=== PATIENT | male | born 1990 | race Caucasian/White ===

== ENCOUNTER 2023-12-13 09:00 | Outpatient (CLI) | payer OTHER, SELFPAY | END 2023-12-13 09:01 | disposition home or self-care (01) | PROVIDERS: PCP Family Medicine; Visit Provider Family Medicine | DX: Z00.00 Encounter for general adult medical examination without abnormal findings (principal); R79.89 Other specified abnormal findings of blood chemistry; J45.20 Mild intermittent asthma, uncomplicated | CPT/HCPCS: 80048; 80061 ==

== ENCOUNTER 2024-06-04 07:48 | Day surgery (SDC) | payer OTHER, SELFPAY ==
[2024-06-04] VITALS (13 sets, daily range): BP systolic 122–155; BP diastolic 59–100; PULSE 57–80; RESP 12–16; TEMP 36.4–36.6; O2SAT 96–100; BMI 33.3
--- OUTSIDE RECORDS SUMMARY | 2024-06-04 07:51 | XMS_ITS | Clinical Summary ---
Author Organization [employer] [facility] Address [facility] [place] [address] Care Team Providers Care Paramedic Supervisor Name Role Phone Clinic, No Pcp Or Primary Care Provider Unavaila ble Allergies No known active allergies Medications predniSONE (DELTASONE) 20 mg tabletIndication s:Community acquired pneumonia of left lung, unspecified part of lung Take 1 tablet by mouth once daily with a meal. 4 tablet 12/14/2019 Active Social History Tobacco Use Types Packs/Day Years Used Date Smoking Tobacco: Never Assessed Sex and Gender Information Value Date Recorded Sex Assigned at Not on file Legal Sex Male 11:26 PM CDT Gender Identity Not on file Sexual Orientation Not on file Last Filed Vital Signs Vital Sign Reading Time Taken Comments Blood Pressure 151/82 12/14/2019 1:15 AM CDT Pulse 91 12/14/2019 1:15 AM CDT Temperature 39.4 C (102.9 F) 12/14/2019 1:15 AM CDT Respiratory Rate 22 12/13/2019 11:48 PM CDT Oxygen Saturation 97% 12/14/2019 1:15 AM CDT Inhaled Oxygen Concentration - - Weight 108.9 kg (240 lb) 12/13/2019 11:48 PM CDT Height 180.3 cm (5' 11) 12/13/2019 11:48 PM CDT Body Mass Index 33.47 12/13/2019 11:48 PM CDT Plan of Treatment Health Maintenance Due Date Last Done Comments Tdap 2001 Depression screening for age 12+ 2002 HIV for age 15-65 2005 BMI (ht and wt on same day) for age 18+ 2008 Hepatitis C screening for ag e 18-79 2008 Tetanus booster 2010 COVID-19 vaccine series ( season) 2023 Influenza for age 9-49 12/15/2023 Pneumococcal series for age 6-49 Aged Out No longer eligible based on patient's age to complete this topic Insurance MEDICA CHOICE Care Teams Paramedic Supervisor Relationship Specialty Start Date End Date Clinic, No Pcp Or . PCP - General 12/14/19
--- OUTSIDE RECORDS SUMMARY | 2024-06-04 07:51 | XMS_ITS | Clinical Summary ---
Author Organization [facility] Address [address] [place] [id number] Care Team Providers Care Garnisher Name Role Phone No Ref-Primary, Physician Primary Care Provider Allergies No known active allergies Social History Tobacco Use Types Packs/Day Years Used Date Smoking Tobacco: Never Assessed Adolescent Education Answer Date Record ed Getting School Help Needed Not on file 01/05 Sex and Gender Information Value Date Recorded Sex Assigned at Not on file Legal Sex Male 2:22 AM CDT Gender Identity Not on file Sexual Orientation Not on file Last Filed Vital Signs Vital Sign Reading Time Taken Comments Blood Pressure 123/81 09/04/2021 2:30 AM CDT Pulse 81 09/04/2021 2:30 AM CDT Temperature 36.7 C (98 F) 09/04/2021 2:30 AM CDT Respiratory Rate 18 09/04/2021 2:30 AM CDT Oxygen Saturation 99% 09/04/2021 2:30 AM CDT Inhaled Oxygen Concentration - - Weight 99.8 kg (220 lb) 09/04/2021 2:30 AM CDT Height - - Body Mass Index - - Plan of Treatment Health Maintenance Due Date Last Done Comments ADVANCE CARE PLANNING 1990 ANNUAL REVIEW OF HM ORDERS 1990 HIV SCREENING 2005 HEPATITIS C SCREENING 2008 HEPATITIS B IMMUNIZATION (1 of 3 - 19+ 3-dose series) 2009 DTAP/TDAP/TD IMMUNIZATION (1 - Tdap) 06/18/2015 YEARLY PREVENTIVE VISIT 06/03/2016 06/03/2015 COVID-19 Vaccine ( - 2023-2 5 season) 2023 INFLUENZA VACCINE (#1) 2023 PHQ-2 (once per calendar year) 2024 ZOSTER IMMUNIZATION (1 of 2) 2040 HPV IMMUNIZATION Aged Out No longer e ligible based on patient's age to complete this topic MENINGITIS IMMUNIZATION Aged Out No l onger eligible based on patient's age to complete this topic Pneumococcal Vaccine: Pediat rics (0 to 5 Years) and At-Risk Patients (6 to 49 Years) Aged Out No longer eligi ble based on patient's age to complete this topic Insurance MEDICA CHOICE Care Teams Garnisher Relationship Specialty Start Date End Date No Ref-Primary, Physician PCP - General 09/04/21
--- OUTSIDE RECORDS SUMMARY | 2024-06-04 07:52 | XMS_ITS | Data Portability ---
Author Organization [place] [facility] Address [address] [place] [address] Assessment Encounter Date Assessment Date Assessment LastModified by Organization Details LastModified Time 11/29/2021 11/29/2021 After a thorough discussion of the preparation, procedure details, risks, possible complications, post-operative care and instructions the patient wishes to proceed with vasectomy. He was given an opportunity to ask questions related to the above information. [email or web address] Not available 11/29/2021 11:25:38 02/28/2022 02/28/2022 31 year old male here for vasectomy for elective male sterilization. Not available 02/27/2022 18:38:27 Plan of Treatment Reminders Order Date Submit Date Provider Last Modified By Organization Details Last Modified Time Details Appointments None recorded. Lab semen analysis (post vasectomy) 2022 023 [facility], [address], [place], [address], 3 12:22:03 semen analysis (post vasectomy) 2021 022 [email or web address] Not available 11:40:07 Referral pelvic floor therapy referral - Please contact patient to schedule 2023 024 [facility], [address] [place], [address], 4 15:07:19 Procedures None recorded. Surgeries None recorded. Imaging None recorded. Medication Orders cephalexin 500 mg capsule [id number] [address], [place], [address], 4 14:25:22 [facility]ium 10 mg tablet [id number], [address], [place], [address], 4 14:25:18 Patient TargetsNo targets recorded. Patient Instructions Encounter Date Encounter Id Patient Instructions Last Modified By Organization Details Last Modified Time 11/29/2021 [id number] SURGICAL ELECTIV E STERILIZATION: VASECTOMY WHAT IS A VASECTOMY? A vasectomy makes a man sterile by obstructing the flow of sperm through the vas deferens. A small puncture in the scrotum is used to isolate a section of the vas deferens. A small portion of the vas deferens is then removed and the vas is occluded. The procedure is typically performed in the office using a local anesthesia, but can be performed at a surgery center under sedation. (Please check with your insurance carrier if you would like sedation, to make sure you qualify.) After a vasectomy it takes at least 3 months to completely clear your ejaculation of sperm. We provide you with a container for a semen analysis to prove that your vasectomy has been successful We believe that proving your sterility is your responsibility. We try to make it easy for you, but you are responsible for collecting and bringing your sample to our office. You must continue to use other forms of contraception until you prove that your vasectomy has been successful. SCHEDULING A VASECTOMY Scheduling a vasectomy is easy. It will consist of a brief office visit with a surgeon to discuss the risks of the procedure and so the surgeon can make sure that you are a good candidate for a vasectomy. Once you are medically cleared and questions are answered, another appointment is made for the actual procedure. POSSIBLE RISKS FROM HAVING A VASECTOMY 1. Recanalization: This word means spontaneous reconnection of the vas deferens and failure of the vasectomy. This complication is rare. Although it can occur at any time, even years later, it most often occurs during the first 6-8 weeks after the procedure. We can t say this enough: Patients must prove that they are sterile by providing semen samples void of sperm before discontinuing other forms of control. 2. : Believe it or not, there are patients who prove they have no sperm in their semen but still father a child. The rate of after a successful vasectomy reported in literature is 0.05% or less. 3. Infection: Uncommon, and usually mild. Most often it can be treated with antibiotics. 4. Bleeding: Usually mild, although a large blood clot called a hematoma can develop and typically resolve by itself. 5. Pain: Pain usually lasts several days and goes away. Pain that lasts months to years is rare. 6. Sperm Granuloma: This is a small scar that sometimes forms where the vas is cut and is not harmful. 7. Sperm Antibodies: These antibodies help the body get rid of the sperm. They are not harmful to you but may make it difficult to achieve if you have the vasectomy reversed. PREPARING FOR A VASECTOMY How to choose a good appointment time: Carve a few days out of your busy schedule when you can recover. Too many men try to go back to normal activities too soon. Men with desk-jobs can usually go back to work after a weekend; men who do heavy labor may want to have a full week set aside to recover. Most men won t need that sort of time, but for those who do it is nice to have. Seven days before the procedure: Stop taking aspirin, ibuprofen (Advil, Motrin), vitamin E, herbal supplements, or any medication that you take to thin the blood. If you are on Warfarin, Coumadin or Plavix, call you physician regarding these medications. Make sure you have some tight underwear or a jock strap to bring to the vasectomy appointment. Wearing supportive underwear for a few days rather than boxers helps to prevent swelling. Buy some triple antibiotic ointment (Bacitracin, Neosporin, generic) to put on the puncture sites. You won t need a big tube because the incisions are small and you only need to put it on for a few days. The day of the procedure: Eat normally unless you are being anesthetized. Please shower or wash the scrotum before the procedure to help reduce the risk of infection. Remember to bring the supportive underwear or jock strap so you can wear it home. Having someone drive you is only mandatory if you are being sedated. AFTER YOUR VASECTOMY Go home. Relax. Show this sentence to your : Plan on being lazy for at least [address] an ice pack on the scrotum (one hour on/one hour off-do not put ice directly on the skin) to minimize swelling. You may shower after 24 hours. Be careful in the shower if you are taking any new prescription medication for the vasectomy, such as narcotic pain medication. Do not lift anything over 20 pounds for seven days. After that, use your judgment. A good rule of thumb: if you are wondering if you should, you probably shouldn t. Resume normal activity slowly. Wait at least seven days before resuming sexual activity, preferably two weeks. It is normal to have discomfort with sex initially. Don t worry, that gets better quickly. It takes some men a few weeks to start feeling totally normal, so be patient. Don t worry about calling with questions if you don t think you are healing well enough; most of the time you just need a little reassurance. Issues that require a phone call are: fever above 100.5; bleeding that doesn t stop for a couple hours after the procedure; progressive scrotal swelling; incision drainage; pain that cannot be controlled with pain medication. A FINAL REMINDER You are not sterile until your semen is completely free of sperm. You must take the responsibility to bring sample into our office to prove your vasectomy is a success. If you follow the instructions above it should be. [email or web address] Not available 11/29/2021 13:52:53 02/28/2022 [id number] He tolerated the procedure well. We discussed post-procedural care including scrotal support for 2 weeks, use of ice packs as needed 30 minutes on/30 minutes off, and application of triple antibiotic ointment twice daily until the incisions have healed. We discussed light restrictions for the next 2 weeks including no heavy lifting and abstinence from intercourse until he notes resolution of swelling and any discomfort. He understands that he needs to use secondary contraception until he confirmed to be sterile. We reviewed return precautions including worsening scrotal swelling and ecchymosis suggestive of a scrotal hematoma, local erythema or drainage suggestive of infection, persistent pain, or fevers. He will return in 3 months for semen analysis. He will call to arrange a visit sooner if he has any concerns during his recovery. [email or web address] Not available 02/27/2022 18:38:30 06/05/2023 [id number] I suspect this i s largely musculoskeletal. We discussed a round of pelvic floor physical therapy. He is agreeable. He will return if he does not find improvement. Not available 06/05/2023 14:43:56 Reason for Referral Pelvic Floor Therapy Referra l for Pain in testicle Please contact patient to schedule Referring Physician: Mc Lawrence, Urology, Encounter Date: 06/05/2023 Results Created Date Observation Date Name Description Value Unit Range Abnormal Flag Note LastModifiedBy Organization Detail LastModifiedTime 06/04/19 23 06/04/2022 POST VAS vasectomy procedure date 2021 Not Available [facility] [address], [place], [address], 06/04/2022 12:22:03 06/04/19 23 06/04/2022 POST VAS post vas # 1 Not Available [facility] [address], [place], [address], 06/04/2022 12:22:03 06/04/19 23 06/04/2022 POST VAS post vas sperm NEGATI VE negati ve Not Available [facility] [address], [place], [address], 06/04/2022 12:22:03 06/04/19 23 06/04/2022 POST VAS pv WBC 0-2/HP F [hpf] Not Available [facility] [address], [place], [address], 06/04/2022 12:22:03 06/04/19 23 06/04/2022 POST VAS notification RESULT S TO PROVID ER FOR REVIEW This lab resul t is being provi ded to you and your provi valerio at the same time in compl iance with the Centu ry Cures Act. Your provi valerio may not have had time to revie w and make recom menda tions based on the resul t. Celeste caballero allow up to one week for provi valerio revie w. Not Available [facility] [address], [place], [address], 06/04/2022 12:22:03 Result Notes None recorded. Problems Name Problem SNOMED Code Status Onset Date Resolution Date Notes Provider Name and Address Organization Details Recorded Time Gastroesophage al reflux disease 225728232 Active Felicia Angelpaste r null, [facility] 2 11:07:07 Asthma 063491454 Active Felicia Goodpaste r null, [facility] 2 11:07:18 Problem Notes None recorded. Procedures Surgical History Date Name Laterality Status Provider Name and Address Organization Details Recorded Time 3 Post Vas completed Jyoti Cano [facility] 06/04/2022 09:05:31 2 SH Vasectomy completed Mc Lawrence MD [address], [place], [address], [facility] 02/27/2022 18:38:13 Removal of sperm duct(s) completed Not Available Health Note 06/03/2023 14:56:24 Imaging Results None recorded. Procedure Notes None recorded. Medical Equipment None Reported. Allergies No known drug allergies Medications Name Sig Start Date Stop Date Status Note LastModified by Organization Details LastModified Time famotidin e 20 mg tablet TAKE 1 TABLET BY MOUTH TWICE A DAY NEEDED 06/05 completed HN: Patient reports no longer taking Not Available Not Available Not Available cephalexi n 500 mg capsule TAKE 1 CAPSULE BY MOUTH 30 MIN PRIOR TO PROCEDUR E, ANTIBIOT IC 06/05 completed Not Available Not Available Not Available omeprazol e 20 mg capsule,d elayed release TAKE 1 CAPSULE BY MOUTH EVERY DAY 30 MINUTES TO 1 HOUR BEFORE A MEAL active Not Available Not Available No t Available diazepam 10 mg tablet TAKE 30 MIN PRIOR TO THE PROCEDUR E, ANXIETY 06/05 completed HN: Patient reports no longer taking Not Available Not Available Not Available levofloxa jayne 500 mg tablet TAKE 1 TABLET BY MOUTH DAILY FOR 10 DAYS 11/29 completed Not Available Not Available Not Available albuterol sulfate HFA 90 mcg/actua tion aerosol inhaler INHALE 2 PUFFS INTO THE LUNGS EVERY 4 TO 6 HOURS NEEDED active Not Available Not Available No t Available fluticaso ne propionat e 50 mcg/actua tion nasal spray,svitlana pension SPRAY 2 SPRAYS INTO EACH NOSTRIL EVERY DAY active Not Available Not Available No t Available amoxicill in 875 mg-potass ium clavulana te 125 mg tablet TAKE 1 TABLET BY MOUTH TWICE A DAY 06/05 completed Not Available Not Available Not Available Wixela Inhub 250 mcg-50 mcg/dose powder for inhalatio n INHALE 1 PUFF DIRECTED TWICE A DAY RINSE MOUTH AFTER USE. active Not Available Not Available No t Available Vitals Date Recorded Body height Body mass index (BMI) Body weight Provider Name and Address Organization Details Last Updated DateTime 11/29/2021 180.34 cm 33.9 kg/m2 108845.95 g Felicia Leone [facility] 11/29/2021 11:06:22 Date Recorded Body weight Body mass index (BMI) Body height Provider Name and Address Organization Details Last Updated DateTime 06/05/2023 596330.6472 22858 g 32.1 kg/m2 180.34 cm Not Available Health Note 06/05/2023 14:21:55 Social History Question Answer Notes LastModified by Organizat ion Details LastModified Time Tobacco Smoking Status Never Smoker Not Available Health Note 06/03/2023 14:56:25 What Is Your Level Of Alcohol Consumption? Moderate Information not available 06/05/2023 What Is Your Level Of Caffeine Consumption? Moderate [email or web address] Information not available 06/03/2023 How Much Tobacco Do You Chew? None [email or web address] Information not available 06/03/2023 Do You Or Have You Ever Used E-cigarettes Or Vape? Never Used Electronic Cigarettes [email or web address] Information not available 06/03/2023 Race White Information not available 11/29/2021 Ethnicity Not /Latin o Information not available 11/29/2021 Preferred Language Mosotho Information not available 11/29/2021 Could You Be ? No Information not available 11/29/2021 What Was The Date Of Your Most Recent Tobacco Screening? 06/05/2023 [email or web address] Information not available 06/03/2023 Have You Ever Been Counseled For Unhealthy Alcohol Use? Yes Information not available 06/05/2023 What Is Your Relationship Status? [email or web address] Information not available 06/03/2023 Are You Sexually Active? Yes [email or web address] Information not available 06/03/2023 Do You Or Have You Ever Used Smokeless Tobacco? Never Used Smokeless Tobacco [email or web address] Information not available 06/03/2023 Do You Use Any Illicit Or Recreational Drugs? No [email or web address] Information not available 06/03/2023 Has Tobacco Cessation Counseling Been Provided? No Information not available 06/05/2023 Do You Or Have You Ever Used Any Other Forms Of Tobacco Or Nicotine? No Information not available 06/05/2023 How Many Days In The Past Year Have You Consumed 5 Or More Drinks? 12 [email or web address] Information no t available 06/03/2023 Sex: Unknown Functional Status None recorded. Mental Status None recorded. Family History Relationship Description Onset Age of this Age Resolved Age Notes LastModified by Organization Details LastModified Time Unspecified Relation Family history of breast cancer Not available 11:07:33 Unspecified Relation Family history of malignant neoplasm Not available 11:07:40 Medical History Condition Response Sexually Transmitted Infection N Diabetes N Other N Bleeding Disorder N High Blood Pressure N Kidney Stones N High Cholesterol N GERD/Acid Reflux Y Heart Disease N Cancer N Lung Disease Y Depression N Immunizations Vaccine Type Date Status Note Provider Nam e and Address Organization Details Recorded Time SARS-COV-2 (COVID-19) vaccine, UNSPECIFIED completed Not Available Health Note 06/03/2023 14:56:27 Past Encounters Encounter ID Performer Location Encounter Start Date Encounter Closed Date Diagnosis/Indication Diagnosis SNOMED-CT Code Diagnosis ICD10 Code Diagnosis Note [id number] Zuri Gonzales [facility] [address] [address] 11/29/2021 10:52:35 11/29/2021 15:31:56 Contraception care management 706918818 Z30.09 [id number] MD Laksh[facility] [address] [place] [address],[facility] e [address] [place] [phone] 02/28/2022 13:51:15 02/28/2022 14:47:32 Male sterilization 317836395 Z30.2 [id number] Jyoti Eduardo is [facility] [address] [place] [address],[facility] e [address] [place] [phone] 06/04/2022 09:01:08 06/04/2022 09:06:49 Contraception care management 835832901 Z30.9 [id number] [facility] [address] [place] [phone] 06/05/2023 14:20:08 06/05/2023 15:11:07 Pain in testicle 00047294 N50.819 Screening for alcohol abuse 299005367 Z13.39 Health Concerns Section Related Observation LastModified by Organization Detai ls LastModified Time None Recorded Concern Status LastModified by Organization Details LastModified Time None Recorded Advance Directives Directive None Recorded Payers Encounter Date Sequence Insurance Name Policy Number Policy Hannah Covered Member ID Hannah Member ID Guarantor Name 11/29/2021 1 [facility] [id number] Yee Ranjan Simmonsi [id number] Lauro Vigil 02/28/2022 1 [facility] [id number] Yee C Musa [id number] Lauro Vigil 06/04/2022 1 [facility] [id number] [facility] Musa [id number] Lauro Vigil 06/05/2023 1 [facility] [id number] Yeemiguel Vigil [id number] Lauro Arias Musa Notes Date Note Type Note Provider Name and Address Organization Details Recorded Time 11/29/2021 text/html Lauro Vigil is a 31 yo male here for vasectomy consult. He states he and his have been discussing sterilization for years.: AlexChildren: 2 The patient is here to discuss a vasectomy. He has children, and is certain that he and his mate do not want to conceive any more. He understands that a vasectomy is intended to be permanent. The patient understands that while vasectomy reversal is possible, after a vasectomy reversal is not assured. He also understands that a vasectomy reversal is almost always associated with a large, [id number] cost. He does understand that reestablishment of sperm flow through the vas deferens is extremely rare but possible and may result in an unexpected at any time after his vasectomy. Furthermore, he understands that control must be used after vasectomy is performed until He is cleared for unprotected intercourse. He has read the Vasectomy Patient Info Book provided to him and was given an opportunity to answer questions related to the procedure and post-op care. Zuri powell [facility] 11/29/2021 13:52:56 02/28/2022 text/html 31 year old male here for vasectomy for elective male sterilization. Mc Lawrence MD [address] [place] [address],[address], [place], [address], [facility] 02/28/2022 14:29:59 06/05/2023 text/html This is a 32 yea r old male here for the evaluation and management of post-vasectomy pain in the left testicle. He underwent bilateral vasectomy on 02/28/2022.He has had dull aching pain in the left testicle.Also radiates posteriorly behind the scrotum. Mc Lawrence MD [address] [place] [address],[address], [place], [address], [facility] 06/05/2023 14:44:07
[2024-06-04] MEDS: LACTATED RINGERS 1000 ML 1,000 ML 100 ML IV (08:30)
[2024-06-04] MEDS: SODIUM CHLORIDE 0.9 % (FLUSH) 10 ML SYRINGE IVF (08:31)
--- NOTE | 2024-06-04 09:23 | W.PM.H&PU ---
History & Physical Update History & Physical Update H&P Reviewed and patient assessed: No changes noted
--- NOTE | 2024-06-04 09:23 | PM.GSPRC ---
Operative Note Date of procedure: 06/04/24 Pre-op diagnosis: Bilateral inguinal hernia Post-op diagnosis: Same Type of Procedure: Laparoscopic bilateral inguinal hernia repair with mesh. Indications: The patient is a 33-year-old male who developed a painful left inguinal hernia. On exam he was found to have a right inguinal hernia as well. After discussion of options, he elected to proceed with bilateral hernia repair. Procedure Description: After discussing the risks and benefits of the procedure, the patient signed informed consent.? The operative site was marked and the patient was brought to the operating room and placed on the operating table in supine position.? Care was taken to pad the patient's pressure points.?? The patient was then intubated by anesthesia.?? The operative site was then prepped and draped in the usual sterile fashion.? A time-out was then performed. A curvilinear incision was made below the umbilicus. Dissection was carried down to subcutaneous tissue until the anterior rectus fascia was encountered. This was incised off the midline on the left. The rectus muscle fibers were then retracted exposing the posterior fascia. A port with a dissecting balloon was then introduced into the pre-preperitoneal space. This was inflated under direct vision. The balloon was deflated, removed, and a 10 mm working port was placed. The space was insufflated and a 10 mm 30-degree scope was then advanced into the space. Two 5 mm ports were placed in the midline under direct vision. Dissection began on the left side. Reece's ligament and the pubic bone were exposed medially. Following this, dissection was carried out laterally. An indirect hernia sac was noted. The sac was dissected free from the cord structures using a combination of sharp and blunt dissection. A small cord lipoma was also reduced. Once this was completely reduced and the lateral space was cleared enough to facilitate mesh placement, attention was turned to the right side. Similarly, Reece's ligament and the pubic bone were exposed medially. An indirect sac was found. This was dissected free from the cord structures. No cord lipoma was noted in the canal or attached to the cord structures. The lateral space was dissected sufficiently for mesh placement. I then obtained a piece of large Bard 3DMax mesh for both the right and left side. This was then placed on each side with the markers pointed medially, overlapping slightly. A tack was used to attach the mesh medially at Reece's ligament on each side. Once this was completed the sac was placed on top of the mesh and the preperitoneal space desufflated under direct vision to ensure the mesh laid flat. 10 mL of 0.5% Marcaine were instilled into the preperitoneal space through a port. The ports were removed. The fascia from the infraumbilical port was closed with 0 Vicryl. The skin incisions were closed with absorbable subcuticular suture. Sterile dressings were then applied. The scrotum was examined to ensure that both testicles were down. Instrument sponge and needle counts were correct at the end of the case. ? The patient was then woken and transported to the recovery area in stable condition. ? The patient tolerated the procedure well. Findings: Indirect bilateral inguinal hernias. Implants: Bard 3DMax mesh. Anesthesia: GETA Surgeon: Aracely Lugo MD Estimated blood loss (mL): 5 Condition: stable Disposition: PACU
[2024-06-04] MEDS: CEFAZOLIN 2 GM INJ IVP (10:00)
[2024-06-04] MEDS: BUPIVACAINE 0.25% 30 ML INJECTION (11:15)
--- NOTE | 2024-06-04 11:21 | P.ANES_ITS ---
Anesthesia Charges Start Date/Time Anesthesia Start Date: 06/04/24 Anesthesia Start Time: 09:34 Stop Date/Time Anesthesia Stop Date: 06/04/24 Anesthesia Stop Time: 11:20 Coding CPT Codes CPT Codes: ANESTH REPAIR OF HERNIA - 25222 ([id number]) P2 - PATIENT W/MILD SYST DISEASE, QZ - BOTTOM LIQUOR ATTENDANT SVC W/O DIRECTOR ELECTRICAL ENGINEERING BY
--- NOTE | 2024-06-04 11:21 | W.ANESCHARGE ---
Anesthesia Charges Start Date/Time Anesthesia Start Date: 06/04/24 Anesthesia Start Time: 09:34 Stop Date/Time Anesthesia Stop Date: 06/04/24 Anesthesia Stop Time: 11:20 Coding CPT Codes CPT Codes: ANESTH REPAIR OF HERNIA - 81932 ([id number]) P2 - PATIENT W/MILD SYST DISEASE, QZ - SURVEY DATA TECHNICIAN SVC W/O CRAWLER DRAGLINE OPERATOR BY
[2024-06-04] MEDS: fentaNYL 100 MCG/2 ML inj 50 MCG IVP ×2 (11:25→11:35)
[2024-06-04] MEDS: KETOROLAC 15 MG/ML inj IVP (12:05)
[2024-06-04] MEDS: HYDROCODONE-ACETAMIN 5-325 MG 1 TAB PO (12:44)
== END 2024-06-04 13:40 | disposition home or self-care (01) ==
PROVIDERS: PCP Family Medicine; Visit Provider Surgery
PROC: (CPT 49650; principal; 2024-06-04 09:15)
DX: K40.20 Bilateral inguinal hernia, without obstruction or gangrene, not specified as recurrent (principal)
CPT/HCPCS: 49650; 00830; 00840; A9270; C1781; J0330; J0665; J0690; J1100; J1171; J1885; J2250; J2405; J2704; J2710; J3010; J3490; J7120